=== PATIENT | female | born 1990 | race Caucasian/White ===

== ENCOUNTER 2022-07-25 21:17 | Emergency (ER) | payer SELFPAY ==
[~2022-07-25] VITALS: Ht 154.9 cm; Wt 95.3 kg
[2022-07-25] MEDS ORDERED: IBUPROFEN 600 MG TAB PO STA (21:51)
[2022-07-25] MEDS ORDERED: ONDANSETRON HCL 4 MG ORAL DISINTEGRATING TAB PO ONE (22:00)
[2022-07-25] MEDS ORDERED: MACROBID 100 M100 MG PO (22:21)
[2022-07-25] MEDS ORDERED: BENZONATATE100 MG PO (22:21)
[2022-07-25] MEDS ORDERED: IBUPROFEN800 MG PO (22:21)
[2022-07-25] MEDS ORDERED: ONDANSETRON ODT4 MG PO (22:21)
[2022-07-25] MEDS ORDERED: ONDANSETRON HCL 4 MG ORAL DISINTEGRATING TAB ONE (22:22)
[2022-07-25] MEDS ORDERED: IBUPROFEN 600 MG TAB ONE (22:22)
[2022-07-25 22:32] VITALS: BP 120/62
== END 2022-07-25 22:32 | disposition home or self-care (01) ==
LOC: FSED 21:33
DX: R11.2 Nausea with vomiting, unspecified (principal); N30.90 Cystitis, unspecified without hematuria; J06.9 Acute upper respiratory infection, unspecified; I10 Essential (primary) hypertension; F41.9 Anxiety disorder, unspecified; F32.A Depression, unspecified; E66.01 Morbid (severe) obesity due to excess calories
CPT/HCPCS: 81003; 81025; 87400; 99283; Q0162

== ENCOUNTER 2022-07-27 14:07 | Inpatient (IN) | payer SELFPAY ==
[~2022-07-27] VITALS: Ht 154.9 cm; Wt 97.1 kg
[~2022-07-27 14:07] MED LIST: BENZONATATE100 MG PO; IBUPROFEN800 MG PO; MACROBID 100 M100 MG PO; ONDANSETRON ODT4 MG PO
[2022-07-27 14:42] LABS: BASOPHILS % 0.2 % (0.0-1.0); EOSINOPHILS % 0.1 % (0.0-6.0); HEMATOCRIT 37.6 % (34.2-44.1); HEMOGLOBIN 12.6 g/dL (12.0-16.0); LYMPHOCYTES # (AUTO) 0.9 (1.0-3.2); LYMPHOCYTES % 5.1 % (18.0-39.1); MEAN CORPUSCULAR HEMOGLOBIN 29.8 pg (28-32); MEAN CORPUSCULAR HGB CONC 33.5 g/dL (31-35); MEAN CORPUSCULAR VOLUME 88.9 fL (81-99); MONOCYTES # (AUTO) 0.9 (0.2-0.8); MONOCYTES % 5.3 % (4.4-11.3); NEUTROPHILS # (AUTO) 14.9 (2.1-6.9); NEUTROPHILS % 88.6 % (38.7-80.0); PLATELET COUNT 248 x10e3/uL (140-360); RED BLOOD COUNT 4.23 x10e6/uL (3.6-5.1); RED CELL DISTRIBUTION WIDTH 13.3 % (11.7-14.4)
[2022-07-27] MEDS ORDERED: SODIUM CHLORIDE 0.9% 1000ML 1,000 ML IV ONE ×2 (14:45→15:45)
[2022-07-27 14:52] LABS: INR 1.12; PROTHROMBIN TIME 15.4 seconds (11.9-14.5)
[2022-07-27 15:00] LABS: ALBUMIN 2.8 g/dL (3.5-5.0); ALBUMIN/GLOBULIN RATIO 0.6 (0.8-2.0); ANION GAP 19.9 mmol/L (8-16); CALCIUM 8.1 mg/dL (8.4-10.2); CREATININE, SERUM 2.96 mg/dL (0.57-1.11)
[2022-07-27] MEDS ORDERED: PROMETHAZINE HCL (IM) 25 MG/ML VIAL IM PRN (15:00)
[2022-07-27 15:04] LABS: POTASSIUM 2.9 mmol/L (3.5-5.1)
[2022-07-27] MEDS ORDERED: METOCLOPRAMIDE HCL 10 MG/2ML VIAL IV ONE (16:15)
[2022-07-27] MEDS: CLONAZEPAM 1 MG TAB PO PRN (16:58)
[2022-07-27] MEDS ORDERED: ONDANSETRON HCL INJ 2MG/ML 2ML 2 MG/ML VIAL IV PRN (17:00)
[2022-07-27] MEDS ORDERED: POTASSIUM CHLORIDE 10MEQ/100ML 300 ML IV ONE (17:00)
[2022-07-27] MEDS: SODIUM CHLORIDE 0.9% 1000ML 1,000 ML IV SCH (17:10)
[2022-07-27 17:52] LABS: CLARITY,URINE SL CLOUDY (CLEAR); COLOR,URINE AMBER (YELLOW); KETONES,URINE 1+ (NEGATIVE); LEUKOCYTE ESTERASE ,URINE SMALL (NEGATIVE); NITRITE,URINE NEGATIVE (NEGATIVE); PROTEIN,URINE DIPSTICK 2+ (NEGATIVE); URINE UROBILINOGEN 0.2 mg/dL (0.2 - 1)
[2022-07-27 18:09] LABS: AMORPHOUS SEDIMENT,URINE MODERATE (FEW); BACTERIA,URINE MODERATE /HPF; EPITHELIAL CELLS,URINE FEW /LPF
[2022-07-27] MEDS ORDERED: Morphine 4mg INJECTION 4 MG/ML INJ IV PRN (19:30)
[2022-07-27 21:19] VITALS: BP 122/77
[2022-07-27] MEDS ORDERED: LOSARTAN-HCTZ1 EAC1 PO (22:09)
[2022-07-27] MEDS ORDERED: FLUOXETINE HCL40 MG PO (22:09)
[2022-07-27] MEDS ORDERED: HYDROXYZINE HCL25 MG PO (22:09)
[2022-07-27] MEDS: ACETAMINOPHEN 325 MG TAB PO PRN (22:11)
[2022-07-28] VITALS (7 sets, daily range): BP systolic 115–148; BP diastolic 76–96
[2022-07-28] MEDS: SODIUM CHLORIDE 0.9% 1000ML 1,000 ML IV SCH ×4 (01:17→23:57)
[2022-07-28] MEDS: ACETAMINOPHEN 325 MG TAB PO PRN ×2 (03:45→15:31)
[2022-07-28 05:03] LABS: BASOPHILS % 0.3 % (0.0-1.0); EOSINOPHILS % 0.1 % (0.0-6.0); HEMATOCRIT 33.5 % (34.2-44.1); HEMOGLOBIN 11.7 g/dL (12.0-16.0); LYMPHOCYTES # (AUTO) 0.8 (1.0-3.2); LYMPHOCYTES % 6.1 % (18.0-39.1); MEAN CORPUSCULAR HEMOGLOBIN 29.7 pg (28-32); MEAN CORPUSCULAR HGB CONC 34.9 g/dL (31-35); MONOCYTES # (AUTO) 0.9 (0.2-0.8); MONOCYTES % 7.5 % (4.4-11.3); NEUTROPHILS # (AUTO) 10.4 (2.1-6.9); NEUTROPHILS % 85.1 % (38.7-80.0); PLATELET COUNT 231 x10e3/uL (140-360); RED BLOOD COUNT 3.94 x10e6/uL (3.6-5.1); RED CELL DISTRIBUTION WIDTH 13.4 % (11.7-14.4)
[2022-07-28 05:29] LABS: ANION GAP 16.9 mmol/L (8-16); CALCIUM 7.6 mg/dL (8.4-10.2); CREATININE, SERUM 1.31 mg/dL (0.57-1.11)
[2022-07-28 05:34] LABS: POTASSIUM 2.9 mmol/L (3.5-5.1)
[2022-07-28] MEDS: METRONIDAZOLE 500MG/NS 100ML 100 ML IV SCH ×4 (06:49→23:56)
[2022-07-28] MEDS ORDERED: POTASSIUM CHLORIDE 20 MEQ TAB CR PO ONE (07:10)
[2022-07-28] MEDS ORDERED: POTASSIUM CHLORIDE 20MEQ/100ML 100 ML IV ONE (07:30)
[2022-07-28] MEDS: HYDROCODONE/APAP 5MG-325MG TAB PO PRN ×3 (09:45→19:51)
[2022-07-29] VITALS (8 sets, daily range): BP systolic 117–152; BP diastolic 82–107
[2022-07-29] MEDS: CLONAZEPAM 1 MG TAB PO PRN (00:34)
[2022-07-29] MEDS: METRONIDAZOLE 500MG/NS 100ML 100 ML IV SCH ×5 (00:34→23:50)
[2022-07-29] MEDS: ACETAMINOPHEN 325 MG TAB PO PRN ×2 (00:34→10:04)
[2022-07-29 05:09] LABS: BASOPHILS % 0.3 % (0.0-1.0); EOSINOPHILS % 0.3 % (0.0-6.0); HEMOGLOBIN 12.4 g/dL (12.0-16.0); LYMPHOCYTES # (AUTO) 1.5 (1.0-3.2); LYMPHOCYTES % 16.5 % (18.0-39.1); MEAN CORPUSCULAR HEMOGLOBIN 29.4 pg (28-32); MEAN CORPUSCULAR HGB CONC 32.6 g/dL (31-35); MONOCYTES # (AUTO) 0.7 (0.2-0.8); MONOCYTES % 7.5 % (4.4-11.3); NEUTROPHILS # (AUTO) 6.7 (2.1-6.9); NEUTROPHILS % 74.2 % (38.7-80.0); PLATELET COUNT 262 x10e3/uL (140-360); RED BLOOD COUNT 4.22 x10e6/uL (3.6-5.1); RED CELL DISTRIBUTION WIDTH 13.5 % (11.7-14.4)
[2022-07-29] MEDS ORDERED: PIPERACILLIN/TAZOBACTAM SOD 2.25 GM VIAL ONE (05:32)
[2022-07-29 05:38] LABS: ANION GAP 12.9 mmol/L (8-16); CREATININE, SERUM 0.83 mg/dL (0.57-1.11); POTASSIUM 2.9 mmol/L (3.5-5.1)
[2022-07-29] MEDS: POTASSIUM CHLORIDE 20MEQ/100ML 100 ML IV SCH ×2 (07:31→09:30)
[2022-07-29] MEDS: SODIUM CHLORIDE 0.9% 1000ML 1,000 ML IV SCH ×2 (10:09→17:00)
[2022-07-29] MEDS ORDERED: POTASSIUM CHLORIDE 20 MEQ TAB CR PO ONE ×2 (11:30→18:45)
[2022-07-29] MEDS ORDERED: FIORICET 50-301 EACH PO (18:30)
[2022-07-29] MEDS ORDERED: HYDROXYZINE HCL 25 MG TAB PO PRN (19:00)
[2022-07-29] MEDS ORDERED: ACETAMIN/BUTALBITAL/CAFFEINE TAB PO PRN (19:15)
[2022-07-29] MEDS: HYDROCHLOROTHIAZIDE 25 MG TAB PO SCH (21:08)
[2022-07-29] MEDS: LOSARTAN POTASSIUM 100 MG TAB PO SCH (21:08)
[2022-07-30] VITALS: BP 135/86
[2022-07-30] MEDS: KCL 20MEQ/.9 SOD CHL 1,000 ML IV SCH ×3 (00:45→10:12)
[2022-07-30 04:00] VITALS: BP 133/97
[2022-07-30 05:26] LABS: BASOPHILS # (AUTO) 0.1 (0.0-0.1); BASOPHILS % 0.9 % (0.0-1.0); EOSINOPHILS # (AUTO) 0.2 (0.0-0.4); EOSINOPHILS % 1.5 % (0.0-6.0); HEMATOCRIT 39.4 % (34.2-44.1); HEMOGLOBIN 12.8 g/dL (12.0-16.0); LYMPHOCYTES # (AUTO) 2.4 (1.0-3.2); LYMPHOCYTES % 21.6 % (18.0-39.1); MEAN CORPUSCULAR HEMOGLOBIN 29.2 pg (28-32); MEAN CORPUSCULAR HGB CONC 32.5 g/dL (31-35); MEAN CORPUSCULAR VOLUME 89.7 fL (81-99); MONOCYTES # (AUTO) 1.3 (0.2-0.8); MONOCYTES % 11.5 % (4.4-11.3); NEUTROPHILS # (AUTO) 6.7 (2.1-6.9); NEUTROPHILS % 60.6 % (38.7-80.0); PLATELET COUNT 271 x10e3/uL (140-360); RED BLOOD COUNT 4.39 x10e6/uL (3.6-5.1); RED CELL DISTRIBUTION WIDTH 13.1 % (11.7-14.4)
[2022-07-30] MEDS: METRONIDAZOLE 500MG/NS 100ML 100 ML IV SCH ×2 (05:37→12:49)
[2022-07-30 05:49] LABS: ANION GAP 15.3 mmol/L (8-16); CALCIUM 8.3 mg/dL (8.4-10.2); CREATININE, SERUM 0.75 mg/dL (0.57-1.11); POTASSIUM 3.3 mmol/L (3.5-5.1)
[2022-07-30 08:15] VITALS: BP 144/94
[2022-07-30] MEDS ORDERED: FLUOXETINE HCL 20 MG CAP PO SCH (09:00)
[2022-07-30] MEDS ORDERED: HYDROCHLOROTHIAZIDE 25 MG TAB PO SCH (09:00)
[2022-07-30] MEDS: HYDROCHLOROTHIAZIDE 25 MG TAB PO SCH (10:00)
[2022-07-30] MEDS: LOSARTAN POTASSIUM 100 MG TAB PO SCH (10:00)
[2022-07-30] MEDS ORDERED: POTASSIUM CHLORIDE 20 MEQ TAB CR PO ONE (11:15)
[2022-07-30] MEDS ORDERED: SODIUM CHLORIDE 0.9% 250ML 250 ML ONE (12:18)
[2022-07-30 12:29] VITALS: BP 129/90
== END 2022-07-30 15:01 | disposition home or self-care (01) | DRG 683 ==
LOC: ER 14:27 → ERHOLD 16:49 → MED/SURG 21:19
PROVIDERS: ADMIT Family Medicine; ATTEND Family Medicine
DX: N17.9 Acute kidney failure, unspecified (principal); A08.39 Other viral enteritis; N39.0 Urinary tract infection, site not specified; E86.0 Dehydration; Z20.822 Contact with and (suspected) exposure to COVID-19; I10 Essential (primary) hypertension
CPT/HCPCS: 36415; 74176; 80048; 80053; 81001; 83690; 84132; 84702; 85025; 85610; 87086; 87186; 93005; 99284; J2270; J2405; J2543; J2550; J2765; J3410; J3480; J7030; J7050

== ENCOUNTER 2022-08-12 00:48 | Emergency (ER) | payer MEDICARE ==
[~2022-08-12] VITALS: Ht 154.9 cm; Wt 97.1 kg
[~2022-08-12 00:48] MED LIST changes: +FIORICET 50-301 EACH PO; +FLUOXETINE HCL40 MG PO; +HYDROXYZINE HCL25 MG PO; +LOSARTAN-HCTZ1 EAC1 PO
[2022-08-12] MEDS: SODIUM CHLORIDE 0.9% 1000ML 1,000 ML IV STA (01:10)
[2022-08-12] MEDS: ONDANSETRON HCL INJ 2MG/ML 2ML 2 MG/ML VIAL IV STA (01:10)
[2022-08-12] MEDS: Morphine 4mg INJECTION 4 MG/ML INJ IV ONE ×3 (01:30→07:13)
[2022-08-12] MEDS ORDERED: Morphine 4mg INJECTION 4 MG/ML INJ ONE (01:37)
[2022-08-12 02:10] LABS: BASOPHILS # (AUTO) 0.1 (0.0-0.1); BASOPHILS % 0.9 % (0.0-1.0); EOSINOPHILS # (AUTO) 0.2 (0.0-0.4); EOSINOPHILS % 1.7 % (0.0-6.0); HEMATOCRIT 40.4 % (34.2-44.1); HEMOGLOBIN 13.2 g/dL (12.0-16.0); LYMPHOCYTES # (AUTO) 3.9 (1.0-3.2); LYMPHOCYTES % 33.8 % (18.0-39.1); MEAN CORPUSCULAR HEMOGLOBIN 29.5 pg (28-32); MEAN CORPUSCULAR HGB CONC 32.7 g/dL (31-35); MEAN CORPUSCULAR VOLUME 90.2 fL (81-99); MONOCYTES % 8.6 % (4.4-11.3); NEUTROPHILS # (AUTO) 6.3 (2.1-6.9); NEUTROPHILS % 54.7 % (38.7-80.0); PLATELET COUNT 550 x10e3/uL (140-360); RED BLOOD COUNT 4.48 x10e6/uL (3.6-5.1); RED CELL DISTRIBUTION WIDTH 12.9 % (11.7-14.4)
[2022-08-12 02:28] LABS: ALBUMIN 4.1 g/dL (3.5-5.0); ALBUMIN/GLOBULIN RATIO 0.9 (0.8-2.0); ANION GAP 20.8 mmol/L (8-16); CREATININE, SERUM 1.24 mg/dL (0.57-1.11)
[2022-08-12] MEDS: DICYCLOMINE HCL 20 MG/2 ML VIAL IM STA (02:30)
[2022-08-12 02:34] LABS: CALCIUM 9.7 mg/dL (8.4-10.2); POTASSIUM 2.8 mmol/L (3.5-5.1)
[2022-08-12] MEDS: POTASSIUM CHLORIDE 20MEQ/100ML 200 ML IV ONE (03:06)
[2022-08-12] MEDS ORDERED: ONDANSETRON HCL INJ 2MG/ML 2ML 2 MG/ML VIAL ONE (03:07)
[2022-08-12] MEDS: KETOROLAC TROMETHAMINE 30 MG/ML VIAL IV STA (04:10)
[2022-08-12] MEDS ORDERED: PROMETHAZINE HCL (IM) 25 MG/ML VIAL IM ONE (04:12)
[2022-08-12] MEDS ORDERED: KETOROLAC TROMETHAMINE 30 MG/ML VIAL ONE (04:12)
[2022-08-12] MEDS ORDERED: FLOMAX0.4 MG PO (04:29)
[2022-08-12] MEDS ORDERED: CEPHALEXIN500 MG PO (04:29)
[2022-08-12] MEDS ORDERED: KETOROLAC TROME10 MG PO (04:29)
[2022-08-12 04:35] LABS: CLARITY,URINE CLOUDY (CLEAR); COLOR,URINE YELLOW (YELLOW); KETONES,URINE NEGATIVE (NEGATIVE); LEUKOCYTE ESTERASE ,URINE 1+ (NEGATIVE); NITRITE,URINE NEGATIVE (NEGATIVE); PROTEIN,URINE DIPSTICK 1+ (NEGATIVE); URINE UROBILINOGEN 0.2 mg/dL (0.2 - 1)
[2022-08-12 04:36] LABS: AMPHETAMINES SCREEN,URINE NEGATIVE (NEGATIVE); BENZODIAZEPINES SCREEN,URINE NEGATIVE (NEGATIVE); PHENCYCLIDINE SCREEN,URINE NEGATIVE (NEGATIVE)
[2022-08-12 04:56] LABS: BACTERIA,URINE MANY /HPF; EPITHELIAL CELLS,URINE MANY /LPF; WBC,URINE (MAN) >50 /HPF (0-5)
[2022-08-12] MEDS ORDERED: IOPAMIDOL 370 MG/ML 100 ML INFUS..BTL INJ ONE (05:17)
== END 2022-08-12 07:18 | disposition home or self-care (01) ==
LOC: ER 01:08
DX: N20.0 Calculus of kidney (principal); N17.9 Acute kidney failure, unspecified; N39.0 Urinary tract infection, site not specified; I10 Essential (primary) hypertension; F32.A Depression, unspecified; F41.9 Anxiety disorder, unspecified; Z79.899 Other long term (current) drug therapy
CPT/HCPCS: 36415; 74177; 80053; 80307; 81001; 83690; 84702; 85025; 99284; J0500; J1885; J2270; J2405; J2550; J7030; Q9967

== ENCOUNTER 2023-02-06 14:01 | Inpatient (IN) | payer SELFPAY ==
[~2023-02-06] VITALS: Ht 154.9 cm; Wt 97.1 kg
[~2023-02-06 14:01] MED LIST changes: +CEPHALEXIN500 MG PO; +FLOMAX0.4 MG PO; +KETOROLAC TROME10 MG PO
[2023-02-06] MEDS ORDERED: KETOROLAC TROMETHAMINE 30 MG/ML VIAL IV STA (14:05)
[2023-02-06] MEDS ORDERED: ONDANSETRON HCL INJ 2MG/ML 2ML 2 MG/ML VIAL IV STA ×2 (14:05→17:37)
[2023-02-06] MEDS ORDERED: SODIUM CHLORIDE 0.9% 1000ML 1,000 ML IV STA (14:05)
[2023-02-06 14:30] LABS: BASOPHILS # (AUTO) 0.1 (0.0-0.1); BASOPHILS % 0.4 % (0.0-1.0); EOSINOPHILS # (AUTO) 0.3 (0.0-0.4); EOSINOPHILS % 1.4 % (0.0-6.0); HEMATOCRIT 43.3 % (34.2-44.1); LYMPHOCYTES # (AUTO) 1.4 (1.0-3.2); LYMPHOCYTES % 6.9 % (18.0-39.1); MEAN CORPUSCULAR HEMOGLOBIN 29.6 pg (28-32); MEAN CORPUSCULAR HGB CONC 34.6 g/dL (31-35); MEAN CORPUSCULAR VOLUME 85.4 fL (81-99); MONOCYTES # (AUTO) 1.1 (0.2-0.8); MONOCYTES % 5.7 % (4.4-11.3); NEUTROPHILS # (AUTO) 16.6 (2.1-6.9); NEUTROPHILS % 85.1 % (38.7-80.0); PLATELET COUNT 373 x10e3/uL (140-360); RED BLOOD COUNT 5.07 x10e6/uL (3.6-5.1); RED CELL DISTRIBUTION WIDTH 12.9 % (11.7-14.4)
[2023-02-06 14:47] LABS: ANION GAP 15.7 mmol/L (8-16); CALCIUM 9.4 mg/dL (8.4-10.2); CREATININE, SERUM 0.91 mg/dL (0.57-1.11); POTASSIUM 3.7 mmol/L (3.5-5.1)
[2023-02-06 15:46] LABS: CLARITY,URINE SL CLOUDY (CLEAR); COLOR,URINE YELLOW (YELLOW); KETONES,URINE NEGATIVE (NEGATIVE); LEUKOCYTE ESTERASE ,URINE NEGATIVE (NEGATIVE); NITRITE,URINE NEGATIVE (NEGATIVE); PROTEIN,URINE DIPSTICK 2+ (NEGATIVE); URINE UROBILINOGEN 0.2 mg/dL (0.2 - 1)
[2023-02-06 16:01] LABS: WBC,URINE (MAN) 21-50 /HPF (0-5)
[2023-02-06 16:02] LABS: BACTERIA,URINE MODERATE /HPF; EPITHELIAL CELLS,URINE MODERATE /LPF
[2023-02-06] MEDS ORDERED: FENTANYL CITRATE/PF 100MCG/2 ML INJ IV ONE ×2 (17:45→22:00)
[2023-02-06] MEDS ORDERED: SODIUM CHLORIDE FLUSH 10 ML SYR INJ PRN (18:30)
[2023-02-06] MEDS: LEVOFLOXACIN 500MG/D5W 100ML IV SCH (19:01)
[2023-02-06] MEDS: Morphine 4mg INJECTION 4 MG/ML INJ IV PRN (20:00)
[2023-02-06] MEDS: ONDANSETRON HCL INJ 2MG/ML 2ML 2 MG/ML VIAL IV PRN (22:34)
[2023-02-06] MEDS: KETOROLAC TROMETHAMINE 30 MG/ML VIAL IV PRN (23:23)
[2023-02-07] VITALS (10 sets, daily range): BP systolic 134–172; BP diastolic 80–116; PULSE 67–89; RESP 17–18; TEMP 97.5–98.5; O2SAT 98–100
[2023-02-07] MEDS ORDERED: LOSARTAN POTAS100 MG PO (00:53)
[2023-02-07] MEDS: Morphine 4mg INJECTION 4 MG/ML INJ IV PRN ×2 (01:05→05:50)
[2023-02-07] MEDS: ONDANSETRON HCL INJ 2MG/ML 2ML 2 MG/ML VIAL IV PRN ×2 (05:50→10:09)
[2023-02-07 06:03] LABS: BASOPHILS # (AUTO) 0.1 (0.0-0.1); BASOPHILS % 0.4 % (0.0-1.0); EOSINOPHILS # (AUTO) 0.1 (0.0-0.4); EOSINOPHILS % 0.8 % (0.0-6.0); HEMATOCRIT 40.5 % (34.2-44.1); HEMOGLOBIN 13.5 g/dL (12.0-16.0); LYMPHOCYTES # (AUTO) 2.3 (1.0-3.2); LYMPHOCYTES % 13.4 % (18.0-39.1); MEAN CORPUSCULAR HEMOGLOBIN 29.2 pg (28-32); MEAN CORPUSCULAR HGB CONC 33.3 g/dL (31-35); MEAN CORPUSCULAR VOLUME 87.7 fL (81-99); MONOCYTES # (AUTO) 1.4 (0.2-0.8); MONOCYTES % 7.8 % (4.4-11.3); NEUTROPHILS # (AUTO) 13.4 (2.1-6.9); NEUTROPHILS % 77.1 % (38.7-80.0); PLATELET COUNT 339 x10e3/uL (140-360); RED BLOOD COUNT 4.62 x10e6/uL (3.6-5.1); RED CELL DISTRIBUTION WIDTH 12.9 % (11.7-14.4)
[2023-02-07 06:37] LABS: ANION GAP 11.7 mmol/L (8-16); CALCIUM 8.9 mg/dL (8.4-10.2); CREATININE, SERUM 0.84 mg/dL (0.57-1.11); POTASSIUM 3.7 mmol/L (3.5-5.1)
[2023-02-07] MEDS ORDERED: HYDROXYZINE HCL 25 MG TAB PO PRN (08:30)
[2023-02-07] MEDS ORDERED: ACETAMIN/BUTALBITAL/CAFFEINE TAB PO PRN ×2 (08:30→10:30)
[2023-02-07] MEDS: FLUOXETINE HCL 20 MG CAP PO SCH (09:54)
[2023-02-07] MEDS: LOSARTAN POTASSIUM 100 MG TAB PO SCH (09:54)
[2023-02-07] MEDS: SODIUM CHLORIDE 0.9% 1000ML 1,000 ML IV SCH ×2 (09:55→17:56)
[2023-02-07] MEDS: KETOROLAC TROMETHAMINE 30 MG/ML VIAL IV PRN (16:37)
[2023-02-07] MEDS: LEVOFLOXACIN 500MG/D5W 100ML IV SCH (17:56)
[2023-02-07] MEDS: HYDRALAZINE HCL 20 MG/ML VIAL IV PRN (21:50)
[2023-02-08] VITALS (7 sets, daily range): BP systolic 141–166; BP diastolic 81–113; PULSE 72–104; RESP 17–19; TEMP 97.7–98.3; O2SAT 95–100
[2023-02-08] MEDS: Morphine 4mg INJECTION 4 MG/ML INJ IV PRN ×2 (00:39→05:52)
[2023-02-08] MEDS: ONDANSETRON HCL INJ 2MG/ML 2ML 2 MG/ML VIAL IV PRN ×2 (03:56→11:28)
[2023-02-08] MEDS: HYDRALAZINE HCL 20 MG/ML VIAL IV PRN (03:58)
[2023-02-08] MEDS: KETOROLAC TROMETHAMINE 30 MG/ML VIAL IV PRN ×2 (04:01→11:28)
[2023-02-08 05:57] LABS: BASOPHILS # (AUTO) 0.1 (0.0-0.1); BASOPHILS % 0.7 % (0.0-1.0); EOSINOPHILS # (AUTO) 0.2 (0.0-0.4); EOSINOPHILS % 2.1 % (0.0-6.0); HEMOGLOBIN 14.5 g/dL (12.0-16.0); LYMPHOCYTES % 18.5 % (18.0-39.1); MONOCYTES # (AUTO) 0.9 (0.2-0.8); MONOCYTES % 8.2 % (4.4-11.3); NEUTROPHILS # (AUTO) 7.4 (2.1-6.9); NEUTROPHILS % 69.5 % (38.7-80.0); PLATELET COUNT 359 x10e3/uL (140-360); RED CELL DISTRIBUTION WIDTH 13.2 % (11.7-14.4)
[2023-02-08 06:26] LABS: ALBUMIN 3.4 g/dL (3.5-5.0); ALBUMIN/GLOBULIN RATIO 0.7 (0.8-2.0); ANION GAP 13.6 mmol/L (8-16); CALCIUM 9.1 mg/dL (8.4-10.2); CREATININE, SERUM 0.78 mg/dL (0.57-1.11); MAGNESIUM 1.9 MG/DL (1.3-2.1); POTASSIUM 3.6 mmol/L (3.5-5.1)
[2023-02-08] MEDS: FLUOXETINE HCL 20 MG CAP PO SCH (09:26)
[2023-02-08] MEDS: LOSARTAN POTASSIUM 100 MG TAB PO SCH (09:26)
[2023-02-08] MEDS ORDERED: CLONIDINE HCL 0.1 MG TAB PO ONE (20:10)
== END 2023-02-08 20:54 | disposition home or self-care (01) | DRG 690 ==
LOC: ER 14:05 → ERHOLD 18:38 → MED/SURG2 23:53 → OBSVTOIN 02-08 08:56
PROVIDERS: ADMIT Family Medicine; ATTEND Family Medicine
DX: N10 Acute pyelonephritis (principal); Z16.11 Resistance to penicillins; N39.0 Urinary tract infection, site not specified; B96.20 Unspecified Escherichia coli [E. coli] as the cause of diseases classified elsewhere; I10 Essential (primary) hypertension; Z87.442 Personal history of urinary calculi; F41.8 Other specified anxiety disorders; Z59.6 Low income
CPT/HCPCS: 0223U; 36415; 74176; 80048; 80053; 81001; 82948; 83605; 83735; 84702; 85025; 87040; 87086; 87186; 94760; 99284; G0378; J0696; J1885; J1956; J2270; J2405; J7030